=== PATIENT | female | born 1970 | race Caucasian/White ===

== ENCOUNTER 2019-04-11 22:36 | Emergency (ER) | payer MEDICARE, OTHER ==
[~2019-04-11] VITALS: Ht 177.8 cm; Wt 83.0 kg
--- NOTE | 2019-04-11 22:40 | NUR ---
ED Nurse Note: PT BRANDY SOSA [id number] FROM [facility] C/O ABD PAIN AND LEG PAIN SINCE TODAY. PT STATES NAUSEA AND REPORTS VOMITTING. PT VSS, NAD, ERMD AT BEDSIDE. WILL CONTINUE TO MONITOR PATIENT.
--- NOTE | 2019-04-11 22:45 | NUR ---
ED Nurse Note: pt went to ct via wheelchaira ccompanied by radio interference supervisor ins table condition
--- NOTE | 2019-04-11 22:59 | NUR ---
ED Nurse Note: pt back from ct via wheelchair accompanied by radiator fitter in stable condition
--- NOTE | 2019-04-11 23:05 | NUR ---
ED Nurse Note: BLOOD AND URINE COLLECTED AND SENT
--- NOTE | 2019-04-11 23:19 | Diagnostic Imaging Report ---
EXAM: CT Head Without Intravenous Contrast CLINICAL HISTORY: AMS TECHNIQUE: Axial computed tomography images of the head/brain without intravenous contrast. CTDI is 53 mGy and DLP is 1019 mGy-cm. One or more of the following dose reduction techniques were used: automated exposure control, adjustment of the mA and/or kV according to patient size, use of iterative reconstruction technique. COMPARISON: No relevant prior studies available. FINDINGS: Brain: No hemorrhage or mass effect. Ventricles: No hydrocephalus. Bones/joints: Unremarkable. Soft tissues: Unremarkable. Sinuses: Unremarkable. Mastoid air cells: Clear. IMPRESSION: No acute hemorrhage, hydrocephalus, or mass effect.
[2019-04-11 23:20] VITALS: BP 127/78
[2019-04-11 23:21] LABS: APPEARANCE,URINE CLEAR; BILIRUBIN, URINE NEGATIVE (NEGATIVE); COLOR,URINE PALE YELLOW; GLUCOSE, URINE (UA) 2+ (NEGATIVE); KETONES,URINE NEGATIVE (NEGATIVE); LEUKOCYTE ESTERASE ,URINE NEGATIVE (NEGATIVE); NITRITE,URINE NEGATIVE (NEGATIVE); PH,URINE 5 (4.5-8.0); PROTEIN,URINE NEGATIVE (NEGATIVE); UROBILINOGEN,URINE NORMAL MG/DL (0.0-1.0)
[2019-04-11 23:23] LABS: BASOPHILS % (AUTO) 0.6 % (0.0-2.0); EOSINOPHILS % (AUTO) 0.4 % (0.0-3.0); HEMATOCRIT 42.1 % (37.0-47.0); HEMOGLOBIN 15.3 G/DL (12.0-16.0); LYMPHOCYTES % (AUTO) 15.5 % (20.0-45.0); MEAN CORPUSCULAR VOLUME 88 FL (80-99); MONOCYTES % (AUTO) 6.3 % (1.0-10.0); NEUTROPHILS % (AUTO) 77.2 % (45.0-75.0); PLATELET COUNT 235 K/UL (150-450); RED CELL DISTRIBUTION WIDTH 11.4 % (11.6-14.8); WHITE BLOOD COUNT 8.6 K/UL (4.8-10.8)
[2019-04-11 23:33] LABS: ANION GAP 9 mmol/L (5-15); BLOOD UREA NITROGEN 5 mg/dL (7-18); CALCIUM 9.4 MG/DL (8.5-10.1); CARBON DIOXIDE 31 MMOL/L (21-32); CHLORIDE 102 MMOL/L (98-107); CREATININE 0.7 MG/DL (0.55-1.30); POTASSIUM 3.3 MMOL/L (3.5-5.1); SODIUM 141 MMOL/L (136-145)
[2019-04-12] MEDS ORDERED: NORCO 5-325 TA1 EACH ORAL (00:09)
--- NOTE | 2019-04-12 00:10 | Emergency Room Report ---
History of Present Illness General Chief Complaint: Abdominal Pain Source: Patient Present Illness HPI This a 48-year-old female with history of lupus and rheumatoid arthritis. She presents with chief complaint of lower extremity pain. This been ongoing for 1 to 2 months. Numbness and pain. Initially started on Neurontin is not helping. Also given Risperdal. Also complaint abdominal pain and arm pain. No fever chills. Has nausea vomiting and diarrhea. This been ongoing for 2 days. Nothing made it better. Nothing made it worse. Pain is 8 out of 10. Allergies: Coded Allergies: SULFAMETHOXAZOLE (Verified Allergy, Unknown, 04/11/19) TRIMETHOPRIM (Verified Allergy, Unknown, 04/11/19) Patient History Past Medical History: see triage record, old chart reviewed Past Surgical History: other Pertinent Family History: none Social History: Denies: smoking Now: No Immunizations: other Reviewed Nursing Documentation: PMH: Agreed; PSxH: Agreed Nursing Documentation-PMH Hx Cardiac Problems: Yes - lupus Hx Hypertension: Yes Review of Systems Eye: Denies: eye pain, blurred vision ENT: Denies: ear pain, nose congestion, throat swelling Respiratory: Denies: cough, shortness of breath Cardiovascular: Denies: chest pain, palpitations Gastrointestinal: Reports: abdominal pain, diarrhea, nausea, vomiting Musculoskeletal: Denies: back pain, joint pain Skin: Denies: rash Neurological: Denies: headache, numbness Endocrine: Denies: increased thirst, increased urine Hematologic/Lymphatic: Denies: easy bruising All Other Systems: negative except mentioned in HPI Physical Exam Vital Signs Date Time Temp Pulse Resp B/P (MAP) Pulse Ox O2 Delivery O2 Flow Rate FiO2 04/11/19 22:33 97.3 62 17 122/84 (97) 98 Room Air Vitals normal Sp02 EP Interpretation: reviewed, normal General Appearance: well appearing, no apparent distress, alert Head: normocephalic, atraumatic Eyes: bilateral eye PERRL, bilateral eye EOMI ENT: hearing grossly normal, normal pharynx Neck: full range of motion, supple, no meningismus Respiratory: chest non-tender, lungs clear, normal breath sounds Cardiovascular #1: regular rate, rhythm, no murmur Gastrointestinal: normal bowel sounds, non tender, no mass, no organomegaly, no bruit, non-distended Musculoskeletal: back normal, normal range of motion, gait/station normal Psychiatric: mood/affect normal Medical Decision Making Diagnostic Impression: Primary Impression: Lower extremity pain, bilateral Additional Impression: Abdominal pain Qualified Codes: R10.84 - Generalized abdominal pain ER Course Presents with chronic pain syndrome. No focal deficit. No evidence of TIA or CVA. No evidence of acute abdomen. No obstruction. She may have multiple sclerosis or other movement disorder. Will need further work-up with neurologist. She has an appoint with her doctor in a couple weeks. CT/MRI/US Diagnostic Results CT/MRI/US Diagnostic Results : Imaging Test Ordered: CT head Impression Read by radiologist. Negative. Last Vital Signs Date Time Temp Pulse Resp B/P (MAP) Pulse Ox O2 Delivery O2 Flow Rate FiO2 04/11/19 23:20 62 17 Room Air 04/11/19 23:20 97.3 127/78 98 Status: improved Disposition: HOME, SELF-CARE Condition: Stable Scripts Hydrocodone Bit/Acetaminophen 5-325* (NORCO 5-325*) 1 Each Tablet 1 TAB ORAL Q6H PRN for For Pain, #20 TAB 0 Refills Prov: Tyler Hardy MD 04/12/19 Referrals: NOT CHOSEN [facility]/,REFERRING (PCP) Additional Instructions: Follow-up your doctor in 1 to 2 weeks. You may need referral to see a neurologist. Return if worse. Tyler Hardy MD Apr 12, 2019 00:10
[2019-04-12] MEDS ORDERED: HYDROcodone/Acetamin 5/325 tab ORAL ONE (00:15)
[2019-04-12 00:25] VITALS: BP 123/72
--- NOTE | 2019-04-12 00:25 | NUR ---
ER DISCHARGE NOTE: Patient is cleared to be discharged per ERMD, pt is aox4, on room air, with stable vital signs. pt was given dc and prescription instructions, pt was able to verbalize understanding, pt id band and iv site removed without complications. pt is able to ambulate with steady gait. pt took all belongings.
== END 2019-04-12 00:25 | disposition home or self-care (01) ==
LOC: EDBD 22:36 → EMR 22:49
DX: M79.605 Pain in left leg (principal); M79.604 Pain in right leg; R10.84 Generalized abdominal pain; M06.9 Rheumatoid arthritis, unspecified; Z88.2 Allergy status to sulfonamides; I10 Essential (primary) hypertension; R11.2 Nausea with vomiting, unspecified
CPT/HCPCS: 36415; 70450; 80048; 80307; 81001; 81025; 85025; 99284